=== PATIENT | male | born 1970 | race Caucasian/White ===

== ENCOUNTER 2021-06-05 14:58 | Emergency (ER) | payer OTHER ==
[~2021-06-05] VITALS: Ht 152.4 cm; Wt 51.7 kg
[2021-06-17] MEDS ORDERED: HYDROCODONE-AC1 EAC1 PO (15:12)
== END 2021-06-05 19:00 | disposition left against medical advice (07) ==
LOC: ED 14:58
DX: S82.142A Displaced bicondylar fracture of left tibia, initial encounter for closed fracture (principal); V80.010A Animal-rider injured by fall from or being thrown from horse in noncollision accident, initial encounter; Y93.89 Activity, other specified; Y92.89 Other specified places as the place of occurrence of the external cause; Y99.8 Other external cause status

== ENCOUNTER 2021-06-06 07:20 | Emergency (ER) | payer OTHER ==
[~2021-06-06] VITALS: Ht 152.4 cm; Wt 51.7 kg
== END 2021-06-06 09:06 | disposition home or self-care (01) ==
LOC: ED 07:20
DX: S82.142A Displaced bicondylar fracture of left tibia, initial encounter for closed fracture (principal); V80.010A Animal-rider injured by fall from or being thrown from horse in noncollision accident, initial encounter; Y93.89 Activity, other specified; Y92.89 Other specified places as the place of occurrence of the external cause; Y99.8 Other external cause status

== ENCOUNTER → 2021-06-17 | Day surgery (SDC) | payer OTHER ==
[2021-06-16 13:21] VITALS: BP 128/81
[2021-06-16 14:41] LABS: BASO % 0.7 % (0.0-1.0); EOS % 0.5 % (1.0-4.0); LYMPH # 1.3 10*3/uL (1.3-4.4); LYMPH % 21.7 % (27.0-41.0); MEAN CELL VOLUME 92.4 fl (80.0-94.0); MEAN CORPUSCULAR HGB CONC 32.5 g/dl (33.0-37.0); MEAN PLATELET VOLUME 11.4 fl (9.6-12.3); MONO # 0.4 10*3/uL (0.1-1.0); MONO % 6.7 % (3.0-9.0); NEUT # 4.1 10*3/uL (2.3-7.9); NEUT % 70.2 % (47.0-73.0); PLATELET COUNT AUTOMATED 319 10*3/uL (130-400); RED BLOOD COUNT 4.76 10*6/uL (4.50-5.90); RED CELL DISTRI WIDTH 12.6 % (0-14.5); WHITE BLOOD COUNT 5.9 10*3/uL (4.8-10.8)
[2021-06-16 15:08] LABS: BUN 23 mg/dl (7-24); CHLORIDE 104 mmol/L (98-107); CREATININE 1.14 mg/dL (0.70-1.30); POTASSIUM 4.4 mmol/L (3.5-5.1); SODIUM 139 mmol/L (136-145)
[2021-06-17] VITALS (8 sets, daily range): BP systolic 109–127; BP diastolic 59–80
[~2021-06-17] VITALS: Ht 152.4 cm; Wt 51.7 kg
[~2021-06-17] MED LIST: HYDROCODONE-AC1 EAC1 PO
== END | disposition home or self-care (01) ==
LOC: SDC 06-16 13:15
PROVIDERS: ATTEND Orthopaedic Surgery
DX: S82.122A Displaced fracture of lateral condyle of left tibia, initial encounter for closed fracture (principal); V80.010A Animal-rider injured by fall from or being thrown from horse in noncollision accident, initial encounter; Y93.89 Activity, other specified; Y92.89 Other specified places as the place of occurrence of the external cause; Y99.8 Other external cause status; Z79.899 Other long term (current) drug therapy

== ENCOUNTER → 2021-06-30 | Outpatient (CLI) | payer OTHER | END | disposition home or self-care (01) | LOC: ORTHO 00:37 | PROVIDERS: ATTEND Orthopaedic Surgery | DX: S82.122D Displaced fracture of lateral condyle of left tibia, subsequent encounter for closed fracture with routine healing (principal); X58.XXXD Exposure to other specified factors, subsequent encounter ==